=== PATIENT | male | born 1975 | race American Indian/Alaskan Native ===

== ENCOUNTER 2017-09-26 06:16 | Emergency (ER) | payer OTHER ==
[2017-09-26 06:29] VITALS: BP 144/86
[2017-09-26] MEDS ORDERED: DECADRON IM STA (07:59)
--- NOTE | 2017-09-26 07:59 | Emergency Department Report ---
Minor Respiratory - HPI Chief Complaint: Upper Respiratory Infection Stated Complaint: NASAL CONGESTION, DIFFICULTY IN BREATHING Time Seen by Provider: 09/26/17 07:58 Duration: 10 days Minor Respiratory: Yes Rhinorrhea (congestion and runny nose), Yes Able to Tolerate Fluids, Yes Cough (occasional cough), Yes Shortness of Breath, No Sore Throat, No Ear Pain, No Sick Contacts, No Hemoptysis, No Chest Pain, No Fever Other History: This is a 42-year-old male here presents in that he has been having in nasal congestion, runny nose, child ears sensation and difficulty breathing in over the last 10 days but is getting worse over the last 2 days. He has been taking [id number]-aphvvtu medication without any relief. Pain is 0- 10. Denies any chest pain. ED Review of Systems ROS: Stated complaint: NASAL CONGESTION, DIFFICULTY IN BREATHING Other details as noted in HPI Constitutional: denies: chills, fever Eyes: denies: eye pain, eye discharge, vision change ENT: congestion. denies: ear pain, throat pain, epistaxis Respiratory: cough, shortness of breath, SOB with exertion. denies: orthopnea, SOB at rest, stridor, wheezing Cardiovascular: denies: chest pain, palpitations, edema, syncope Endocrine: no symptoms reported Gastrointestinal: denies: abdominal pain, nausea, vomiting, diarrhea, constipation Genitourinary: denies: urgency, dysuria Musculoskeletal: denies: back pain, joint swelling, arthralgia, myalgia Skin: denies: rash, lesions Neurological: denies: headache, weakness, abnormal gait, vertigo ED Past Medical Hx - Past Medical History Previous Medical History?: No - Surgical History Past Surgical History?: Yes Additional Surgical History: R) knee surg - Family History Family history: no significant - Social History Smoking Status: Never Smoker Substance Use Type: Alcohol, Marijuana - Medications Home Medications: Home Medications Medication Instructions Recorded Confirmed Last Taken Type Naproxen [Naprosyn] 500 mg PO BID #20 tablet 06/04/13 Unknown Rx Amoxicillin/K Clav Tab [Augmentin 1 tab PO Q12HR 7 Days #14 tab 09/26/17 Unknown Rx 875 mg] Cetirizine HCl [ZyrTEC] 10 mg PO QAM 14 Days #14 capsule 09/26/17 Unknown Rx Fluticasone [Flonase] 1 spray NS QDAY 14 Days #1 bottle 09/26/17 Unknown Rx methylPREDNISolone [Medrol Dose 250 mg PO QAM 6 Days #1 pack 09/26/17 Unknown Rx Giovanni] Minor Respiratory Exam - Exam General: Vital signs noted. No distress. Alert and acting appropriately. This is a 42-year-old male well-nourished well-developed and nontoxic in appearance. HEENT: Yes Moist Mucous Membranes (uvula midline and oral airways patent), Yes Rhinorrhea (congested, erythema or clear drainage), No Pharyngeal Erythema, No Pharyngeal Exudates, No Conjuctival Injection, No Frontal Tenderness, No Maxillary Tenderness Ear: Neither TM Bulge (bilateral TM congested without erythema), Neither TM Erythema, Neither EAC Pain, Neither EAC Discharge Neck: Yes Supple (full range of motion, supple and no adeno opacity), No Adenopathy Lungs: Yes Good Air Exchange (. CTAB), No Wheezes, No Ronchi, No Stridor, No Cough, No Labored Respirations, No Retractions, No Use of Accessory Muscles, No Other Abnormal Lung Sounds Abdomen: Yes Normal Bowel Sounds, No Tenderness ( NTTP in all quadrants), No Peritoneal Signs Skin: No Rash, No Edema Neurologic: Alert and oriented 3, GCS of 15, normal gait. Speech is clear and fluid and no facial droop Musculoskeletal: Unremarkable. Extremity: No clubbing, cyanosis or edema. Positive pulses all extremities and no neurovascular compromise. ED Course Vital Signs 09/26/17 06:19 Temperature 98.5 F Pulse Rate 85 Respiratory 20 Rate Blood Pressure 144/86 O2 Sat by Pulse 94 Oximetry - Reevaluation(s) Reevaluation #1: 09/28/17 06:22 Given Decadron 10 mg IM in the emergency room without any adverse reaction. ED Medical Decision Making - Radiology Data Radiology results: report reviewed X-ray 2 view of the chest dictated by radiologist and report reviewed by myself. Please see report below. Patient: MARRY PEREA MR#: [id number] : 1975 Acct:[id number] Age/Sex: 42 / M ADM Date: 09/26/17 Loc: ED Attending Dr: Ordering Physician: MADINA MENDEZ Date of Service: 09/26/17 Procedure(s): XR chest routine 2V Accession Number(s): [id number] cc: MADINA MENDEZ Time In Minutes: FINAL REPORT EXAM: XR CHEST ROUTINE 2V HISTORY: cough, sob TECHNIQUE: Chest, PA and lateral PRIORS: None. FINDINGS: The heart size is normal. Mediastinal contours are normal. Pulmonary vasculature is not congested. The lungs are clear. There are no pleural effusion seen. There is no evidence of pneumothorax. IMPRESSION: There is no acute abnormality identified. Transcribed By: EVERT Dictated By: ONIEL SMITH MD Electronically Authenticated By: ONIEL SMITH MD Signed Date/Time: 09/26/17817 DD/ 7 TD/TT: 09/26/17817 - Medical Decision Making This is a 42-year-old female here reports that he has cold symptoms that she get any worse over the last 2 days complaining of difficulty breathing, nasal congestion, cough, runny nose facial pain and pressure. Denies any chest pain. He states that he has been taking odkm-gms-yrolyld cough and cold medication without any relief and this has been going on for over 2 weeks. Patient seen and examined by myself and he has nasal mucosal congestion, erythema and clear drainage,dry cough and lungs are clear, oral mucosa is normal , no increased work of breathing, no wheezing or rhonchi. Bilateral TM congested. Chest x-ray dictated by radiologist and report reviewed by myself and normal findings. Patient was given Decadron 10 mg IM and emergency room for anti-inflammatory. Patient and educated on medication, treatment plan, diagnosis and need to follow up with primary care physician for reevaluation. Patient with URI with cough and congestion, sinusitis-was given Decadron 10 mg IM and emergency room and will be discharged home on Augmentin, Flonase, Zyrtec and Medrol Dosepak. Patient discharged home in stable condition and his vital signs are stable and he is afebrile. Follow-up with primary care physician in 2-3 days and/or to return to the emergency room if his condition worsens. He was understanding of discharge instruction and discharged home with prescription for Zyrtec, Flonase and Medrol dosepak. - Differential Diagnosis NAE, bronchitis, URI with cough &congestion, sinusitis, allergic rhinitis Critical care attestation.: If time is entered above; I have spent that time in minutes in the direct care of this critically ill patient, excluding procedure time. ED Disposition Clinical Impression: URI with cough and congestion Sinusitis, acute Qualifiers: Sinusitis location: unspecified location Recurrence: not specified as recurrent Qualified Code(s): J01.90 - Acute sinusitis, unspecified Disposition: TO HOME OR SELFCARE Is pt being admited?: No Does the pt Need Aspirin: No Condition: Stable Instructions: Sinusitis (ED), Upper Respiratory Infection (ED) Additional Instructions: Please take antibiotic as prescribed Follow-up with primary care physician in 3 days If your condition worsens to include difficulty breathing, swallowing, chest pain, nausea and vomiting and fever, please return to the emergency room ALIA. Take Zyrtec and Flonase to relieve congestion Increasing fluid intake Use nasal saline wash to flush and nostrils. Prescriptions: Amoxicillin/K Clav Tab [Augmentin 875 mg] 1 tab PO Q12HR 7 Days #14 tab Cetirizine HCl [ZyrTEC] 10 mg PO QAM 14 Days #14 capsule Fluticasone [Flonase] 1 spray NS QDAY 14 Days #1 bottle methylPREDNISolone [Medrol Dose Giovanni] 250 mg PO QAM 6 Days #1 pack Referrals: PRIMARY CARE,MD [Primary Care Provider] - 2-3 Days [facility] [Outside] - 2-3 Days Forms: Work/School Release Form(ED)
--- NOTE | 2017-09-26 08:22 | XRay Report ---
FINAL REPORT EXAM: XR CHEST ROUTINE 2V HISTORY: cough, sob TECHNIQUE: Chest, PA and lateral PRIORS: None. FINDINGS: The heart size is normal. Mediastinal contours are normal. Pulmonary vasculature is not congested. The lungs are clear. There are no pleural effusion seen. There is no evidence of pneumothorax. IMPRESSION: There is no acute abnormality identified.
== END 2017-09-26 08:40 | disposition home or self-care (01) ==
LOC: ED 06:16
DX: J01.90 Acute sinusitis, unspecified (principal); J06.9 Acute upper respiratory infection, unspecified; F12.10 Cannabis abuse, uncomplicated
CPT/HCPCS: 71046; 96372; 99283; J1100

== ENCOUNTER 2017-10-29 20:46 | Emergency (ER) | payer SELFPAY ==
--- NOTE | 2017-10-29 21:49 | Emergency Department Report ---
- General Chief complaint: Skin Rash Stated complaint: BOTH WRIST PAIN Time Seen by Provider: 10/29/17 21:43 Source: patient Mode of arrival: Ambulatory Limitations: No Limitations - History of Present Illness Initial comments: 42-year-old [place] male presents to the emergency room for complaint of hand Center peeling in now at times. Patient states that he cleaned with bleach products at his place of employment and his skin is starting to peel. Patient reports that he feels like his hands has poor circulation. 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 Patient has no primary care currently has no past medical history takes no medications on a daily basis and has no known drug allergies. Denies any fever or chills, or blisters. MD complaint: rash -: days(s) Location: L hand, R hand Quality: other (throbbing) Improves with: none Worsens with: other (using blech chemicals) Associated symptoms: denies other symptoms Treatments Prior to Arrival: none - Related Data Previous Rx's Medication Instructions Recorded Last Taken Type Naproxen [Naprosyn] 500 mg PO BID #20 tablet 06/04/13 Unknown Rx Amoxicillin/K Clav Tab [Augmentin 1 tab PO Q12HR 7 Days #14 tab 09/26/17 Unknown Rx 875 mg] Cetirizine HCl [ZyrTEC] 10 mg PO QAM 14 Days #14 capsule 09/26/17 Unknown Rx Fluticasone [Flonase] 1 spray NS QDAY 14 Days #1 bottle 09/26/17 Unknown Rx methylPREDNISolone [Medrol Dose 250 mg PO QAM 6 Days #1 pack 09/26/17 Unknown Rx Giovanni] Allergies Allergy/AdvReac Type Severity Reaction Status Date / Time No Known Allergies Allergy Verified 09/26/17 06:33 Abscess Boil HPI - HPI Chief Complaint: Skin Rash Stated Complaint: BOTH WRIST PAIN Time Seen by Provider: 10/29/17 21:43 Home Medications: Previous Rx's Medication Instructions Recorded Last Taken Type Naproxen [Naprosyn] 500 mg PO BID #20 tablet 06/04/13 Unknown Rx Amoxicillin/K Clav Tab [Augmentin 1 tab PO Q12HR 7 Days #14 tab 09/26/17 Unknown Rx 875 mg] Cetirizine HCl [ZyrTEC] 10 mg PO QAM 14 Days #14 capsule 09/26/17 Unknown Rx Fluticasone [Flonase] 1 spray NS QDAY 14 Days #1 bottle 09/26/17 Unknown Rx methylPREDNISolone [Medrol Dose 250 mg PO QAM 6 Days #1 pack 09/26/17 Unknown Rx Giovanni] Allergies/Adverse Reactions: Allergies Allergy/AdvReac Type Severity Reaction Status Date / Time No Known Allergies Allergy Verified 09/26/17 06:33 ED Review of Systems ROS: Stated complaint: BOTH WRIST PAIN Other details as noted in HPI Comment: All other systems reviewed and negative ED Past Medical Hx - Past Medical History Previous Medical History?: No - Surgical History Past Surgical History?: No Additional Surgical History: R) knee surg - Social History Smoking Status: Current Every Day Smoker Substance Use Type: Marijuana - Medications Home Medications: Home Medications Medication Instructions Recorded Confirmed Last Taken Type Naproxen [Naprosyn] 500 mg PO BID #20 tablet 06/04/13 Unknown Rx Amoxicillin/K Clav Tab [Augmentin 1 tab PO Q12HR 7 Days #14 tab 09/26/17 Unknown Rx 875 mg] Cetirizine HCl [ZyrTEC] 10 mg PO QAM 14 Days #14 capsule 09/26/17 Unknown Rx Fluticasone [Flonase] 1 spray NS QDAY 14 Days #1 bottle 09/26/17 Unknown Rx methylPREDNISolone [Medrol Dose 250 mg PO QAM 6 Days #1 pack 09/26/17 Unknown Rx Giovanni] ED Physical Exam - General Limitations: No Limitations General appearance: alert, in no apparent distress, other (plan video games with his phone) - Head Head exam: Present: atraumatic, normocephalic - ENT ENT exam: Present: mucous membranes moist - Neurological Exam Neurological exam: Present: alert, oriented X3 - Psychiatric Psychiatric exam: Present: normal affect, normal mood - Skin Skin exam: Present: warm, dry, normal color. Absent: rash, erythema, urticaria , vesicles - Expanded Skin Exam Expanded Distribution of rash: RUE ( hands), LUE (hands) ED Course Vital Signs 10/29/17 20:59 Temperature 98.1 F Pulse Rate 75 Respiratory 18 Rate Blood Pressure 130/80 O2 Sat by Pulse 100 Oximetry ED Medical Decision Making - Medical Decision Making Patient has been evaluated by this provider fast track. Examination of hand shows patient just has dry hands no rash appreciated Discussed patient to avoid chemical exposure to hands. Using a thick lubricant such as Eucerin or Vaseline to the hands after each wash. If his symptoms persist he should follow up with [facility] and dermatology. Patient verbalizes understanding. Critical care attestation.: If time is entered above; I have spent that time in minutes in the direct care of this critically ill patient, excluding procedure time. ED Disposition Clinical Impression: Chemical dermatitis Disposition: DC-01 TO HOME OR SELFCARE Is pt being admited?: No Does the pt Need Aspirin: No Condition: Stable Instructions: Contact Dermatitis (ED) Additional Instructions: Please avoid chemical contact to hands. Please try to use gloves when in contact with chemicals. Please apply Eucerin or Vaseline to hands after each wash. Follow up with dermatology or primary care if symptoms persist or gets worse. Referrals: PRIMARY CARE,MD [Primary Care Provider] - 3-5 Days [facility] [Provider Group] - 3-[address] [facility] [Provider Group] - 3-5 Days Forms: Accompanied Note, Work/School Release Form(ED)
[2017-10-29 22:23] VITALS: BP 136/76
== END 2017-10-29 22:21 | disposition home or self-care (01) ==
LOC: ED 20:46
DX: L25.3 Unspecified contact dermatitis due to other chemical products (principal); F17.200 Nicotine dependence, unspecified, uncomplicated; F12.10 Cannabis abuse, uncomplicated; Z79.899 Other long term (current) drug therapy
CPT/HCPCS: 99282